=== PATIENT | male | born 1970 | race Caucasian/White ===

== ENCOUNTER → 2019-08-17 10:15 | Outpatient (CLI) | payer MEDICARE | END | disposition home or self-care (01) | LOC: D.RAD 10:15 | PROVIDERS: ATTEND Internal Medicine Pulmonary Disease | DX: R13.11 Dysphagia, oral phase (principal) ==

== ENCOUNTER → 2020-05-17 12:48 | Outpatient (CLI) | payer MEDICARE | END | disposition home or self-care (01) | LOC: D.LAB 12:48 | PROVIDERS: ATTEND Internal Medicine Pulmonary Disease | DX: Z11.59 Encounter for screening for other viral diseases (principal) ==

== ENCOUNTER → 2020-05-19 08:12 | Outpatient (CLI) | payer MEDICARE | END | disposition home or self-care (01) | LOC: D.RT 08:12 | PROVIDERS: ATTEND Internal Medicine Pulmonary Disease | DX: Z01.818 Encounter for other preprocedural examination (principal) ==

== ENCOUNTER → 2020-06-01 13:36 | Outpatient (CLI) | payer MEDICARE | END | disposition home or self-care (01) | LOC: D.LAB 13:36 | PROVIDERS: ATTEND Internal Medicine Pulmonary Disease | DX: Z01.818 Encounter for other preprocedural examination (principal) ==